=== PATIENT | female | born 1945 | race Hispanic/Latino ===

== ENCOUNTER → 2020-08-24 | Outpatient (CLI) | payer OTHER ==
[~2020-08-24] MED LIST: DOXE6TAB3 PO; INSU100I13 SQ; LOSA50TA64 PO; METOPROLOL PO; SIMV-43 PO; VITAMIN D PO
== END | disposition home or self-care (01) ==
LOC: RAH 07:31
PROVIDERS: ATTEND Internal Medicine
DX: N28.1 Cyst of kidney, acquired (principal); I12.9 Hypertensive chronic kidney disease with stage 1 through stage 4 chronic kidney disease, or unspecified chronic kidney disease
CPT/HCPCS: 93975

== ENCOUNTER → 2021-01-18 | Outpatient (CLI) | payer OTHER | END | disposition home or self-care (01) | LOC: SHCH 15:46 | PROVIDERS: ATTEND Internal Medicine Cardiovascular Disease | DX: R94.31 Abnormal electrocardiogram [ECG] [EKG] (principal) | CPT/HCPCS: 93306; 93356 ==

== ENCOUNTER → 2021-01-20 | Outpatient (CLI) | payer OTHER, MEDICARE ==
[~2021-01-20] MED LIST changes: +REGADENOSON 0.4 MG/5 ML PF SYG IVP SCH
== END | disposition home or self-care (01) ==
LOC: SHCH 08:23
PROVIDERS: ATTEND Internal Medicine Cardiovascular Disease
DX: R94.31 Abnormal electrocardiogram [ECG] [EKG] (principal); R42 Dizziness and giddiness; R06.00 Dyspnea, unspecified; R68.2 Dry mouth, unspecified; R53.83 Other fatigue
CPT/HCPCS: 78452; 93017; 96374; A9500 ×2

== ENCOUNTER → 2021-03-18 | Outpatient (CLI) | payer OTHER ==
[~2021-03-18] MED LIST changes: -REGADENOSON 0.4 MG/5 ML PF SYG IVP SCH
== END | disposition home or self-care (01) ==
LOC: RAH 13:10
PROVIDERS: ATTEND Otolaryngology Plastic Surgery within the Head & Neck
DX: J32.8 Other chronic sinusitis (principal); J34.2 Deviated nasal septum
CPT/HCPCS: 70486

== ENCOUNTER 2021-05-04 06:00 | Day surgery (SDC) | payer OTHER, MEDICARE ==
[2021-04-28 10:00] LABS: BASOPHILS % (AUTO) 0.8 % (0.0-5.0); EOSINOPHILS % (AUTO) 0.9 % (0.0-8.0); HEMATOCRIT 41.6 % (36-48); MEAN CORPUSCULAR HGB CONC 34.4 g/dL (32.0-36.0); MEAN CORPUSCULAR VOLUME 84.4 fL (79-99); MONOCYTES % (AUTO) 7.9 % (3.0-13.0); NEUTROPHILS % (AUTO) 67.3 % (40.0-77.0); PLATELET COUNT (AUTO) 224 K/uL (130-400); RED BLOOD CELL COUNT(AUTO) 4.93 MIL/uL (4.00-5.50); RED CELL DISTRIBUTION WIDTH 12.5 % (11.0-15.5); WHITE BLOOD COUNT (AUTO) 7.5 K/uL (4.8-10.8)
[2021-04-28 10:07] LABS: CREATININE 0.7 mg/dL (0.5-1.5); POTASSIUM 3.7 mmol/L (3.5-5.1)
[2021-04-28 10:10] LABS: PROTHROMBIN TIME 10.9 SEC (9.6-11.6)
[2021-04-28 10:12] LABS: PARTIAL THROMBOPLASTIN TIME 28.1 SEC (26.3-35.5)
[2021-04-28 10:14] LABS: APPEARANCE,URINE Clear (CLEAR); BILIRUBIN,URINE Negative (NEGATIVE); COLOR,URINE Yellow (YELLOW); GLUCOSE, URINE (UA) Negative (NEGATIVE); KETONES,URINE Negative (NEGATIVE); LEUKOCYTE ESTERASE ,URINE Moderate (NEGATIVE); NITRATE,URINE Negative (NEGATIVE); OCCULT BLOOD,URINE Negative (NEGATIVE); PROTEIN,URINE Negative (NEGATIVE); UROBILINOGEN,URINE 0.2 mg/dL (0.2-1.0)
[2021-04-28 10:31] LABS: BACTERIA,URINE Few /HPF (None Seen); RBC,URINE 0-1 /HPF (0-1)
[2021-05-03 09:54] VITALS: BP 191/72
[~2021-05-04] VITALS: Ht 157.5 cm; Wt 92.5 kg
[2021-05-04] VITALS (20 sets, daily range): BP systolic 123–174; BP diastolic 47–70
[~2021-05-04 06:00] MED LIST changes: +0.9% NACL 500ML IV.SOLN 500 ML IV SCH; +AMLO-258 PO; +CARV6.25 PO; +DENO60DI SQ; -DOXE6TAB3 PO; +DiphenhydrAMINE HCL 50 MG/ML VIAL IVP SCH; +FLUT16H NASAL; +HYDR100T27 PO; +HYDR25TA PO; +LATA2.5D14 OP; -LOSA50TA64 PO; -METOPROLOL PO; -SIMV-43 PO; +SOLU-MEDROL 125MG VIAL IVP SCH
[2021-05-04] MEDS ORDERED: 0.9%NACL 1000ML 1,000 ML IV ONE (06:28)
[2021-05-04] MEDS ORDERED: IOHEXOL 350 MG/ML 100ML INFUS..BTL IV ONE (07:12)
[2021-05-04] MEDS ORDERED: IOHEXOL-350 50ML VIAL IV ONE (07:12)
[2021-05-04] MEDS ORDERED: HEPARIN 10,000 UNIT/10ML (1,000 UNIT/ML) VIAL ONE (07:12)
[2021-05-04] MEDS ORDERED: LIDOCAINE HCL 400MG/20ML VIAL ONE (07:13)
[2021-05-04] MEDS ORDERED: DiphenhydrAMINE HCL 50 MG/ML VIAL ONE (07:17)
[2021-05-04] MEDS ORDERED: SOLU-MEDROL 125MG VIAL ONE (07:18)
[2021-05-04] MEDS ORDERED: LABETALOL 20MG VIAL IV ONE (07:56)
[2021-05-04] MEDS ORDERED: 0.9%NACL 10ML VIAL IVP SCH (08:30)
[2021-05-04] MEDS ORDERED: DEXTROSE 50%-WATER 50 ML DISP.SYRIN IV PRN (08:30)
[2021-05-04] MEDS ORDERED: ATROPINE 1MG SYG IVP ONE (08:57)
[2021-05-04] MEDS ORDERED: PHENAZOPYRIDINE HCL 200 MG TABLET ONE (11:08)
[2021-05-04] MEDS ORDERED: INSULIN HUMULIN R 100 UNIT/ML 3ML SQ SCH (11:30)
== END 2021-05-04 19:00 | disposition home or self-care (01) ==
LOC: DAH 06:00
PROVIDERS: ATTEND Internal Medicine Cardiovascular Disease
DX: I25.118 Atherosclerotic heart disease of native coronary artery with other forms of angina pectoris (principal); I11.0 Hypertensive heart disease with heart failure; I50.22 Chronic systolic (congestive) heart failure; E66.01 Morbid (severe) obesity due to excess calories; E78.5 Hyperlipidemia, unspecified; E11.319 Type 2 diabetes mellitus with unspecified diabetic retinopathy without macular edema; Z90.710 Acquired absence of both cervix and uterus; Z90.49 Acquired absence of other specified parts of digestive tract; Z82.49 Family history of ischemic heart disease and other diseases of the circulatory system; Z88.3 Allergy status to other anti-infective agents; Z68.37 Body mass index [BMI] 37.0-37.9, adult; Z79.4 Long term (current) use of insulin; Z79.01 Long term (current) use of anticoagulants; Z79.899 Other long term (current) drug therapy
CPT/HCPCS: 36415; 71045; 80048; 81001; 82948 ×3; 85025; 85610; 85730; 87088; 93005; 93458; A4215; A4216; A4221; A4222; A4223 ×3; A4606; A4663; A6260; A6402; C1894; J1200; J1644; J1815 ×2; J2930; J3490 ×2; J7030; Q9965; Q9967 ×2; 96360; 96361; J0461

== ENCOUNTER → 2022-06-21 | Outpatient (CLI) | payer OTHER, MEDICARE ==
[~2022-06-21] MED LIST changes: -0.9% NACL 500ML IV.SOLN 500 ML IV SCH; +ALBUTEROL 0.083% 2.5 MG/3 ML INH IH ONE; +AUD IH; +DOXY100V2 IV; -DiphenhydrAMINE HCL 50 MG/ML VIAL IVP SCH; +PRED5TAB PO; -SOLU-MEDROL 125MG VIAL IVP SCH
== END | disposition home or self-care (01) ==
LOC: RESP 12:27
PROVIDERS: ATTEND Internal Medicine Cardiovascular Disease
DX: R06.02 Shortness of breath (principal)
CPT/HCPCS: 94060; 94727; 94729

== ENCOUNTER 2022-09-29 05:14 | Emergency (ER) | payer OTHER, MEDICARE ==
[~2022-09-29] VITALS: Ht 149.9 cm; Wt 93.0 kg
[~2022-09-29 05:14] MED LIST changes: -ALBUTEROL 0.083% 2.5 MG/3 ML INH IH ONE
[2022-09-29 05:55] LABS: BASOPHILS % (AUTO) 0.5 % (0.0-5.0); EOSINOPHILS % (AUTO) 1.1 % (0.0-8.0); HEMATOCRIT 33.2 % (36-48); LYMPHOCYTES % (AUTO) 11.2 % (21.0-51.0); MEAN CORPUSCULAR HEMOGLOBIN 21.9 pg (27.0-33.0); MEAN CORPUSCULAR HGB CONC 30.1 g/dL (32.0-36.0); MEAN CORPUSCULAR VOLUME 72.8 fL (79-99); MONOCYTES % (AUTO) 7.2 % (3.0-13.0); NEUTROPHILS % (AUTO) 79.7 % (40.0-77.0); PLATELET COUNT (AUTO) 212 K/uL (130-400); RED BLOOD CELL COUNT(AUTO) 4.56 MIL/uL (4.00-5.50); WHITE BLOOD COUNT (AUTO) 9.5 K/uL (4.8-10.8)
[2022-09-29 06:07] LABS: ALBUMIN 3.4 g/dL (3.5-5.0); CREATININE 0.7 mg/dL (0.5-1.5); MAGNESIUM 1.7 mg/dL (1.80-2.40); POTASSIUM 3.6 mmol/L (3.5-5.1)
[2022-09-29 06:29] LABS: B-TYPE NATRIURETIC PEPTIDE 252 pg/mL (0-100)
[2022-09-29 06:32] LABS: APPEARANCE,URINE CLEAR (CLEAR); BILIRUBIN,URINE NEGATIVE (NEGATIVE); COLOR,URINE COLORLESS (YELLOW); GLUCOSE, URINE (UA) NEGATIVE (NEGATIVE); KETONES,URINE NEGATIVE (NEGATIVE); LEUKOCYTE ESTERASE ,URINE NEGATIVE Leu/uL (NEGATIVE); NITRATE,URINE NEGATIVE (NEGATIVE); OCCULT BLOOD,URINE NEGATIVE (NEGATIVE); PH,URINE 6.5 (5.0-8.0); PROTEIN,URINE NEGATIVE (NEGATIVE); UROBILINOGEN,URINE 0.2 mg/dL (0.2-1.0)
[2022-09-29 07:24] LABS: ABG BASE EXCESS 2.1 mmol/L (-2.0-3.0); ABG HCO3 24.7 mmol/L (21.0-28.0); ABG OXYGEN SATURATION 92.7 % (95.0-99.0); ABG PCO2 33 mmHg (32-45)
[2022-09-29] MEDS ORDERED: DiphenhydrAMINE HCL 50 MG/ML VIAL IV ONE (09:00)
[2022-09-29] MEDS ORDERED: SOLU-MEDROL 125MG VIAL IVP ONE (09:00)
[2022-09-29] MEDS ORDERED: IOHEXOL 350 MG/ML 100ML INFUS..BTL IV ONE (09:30)
[2022-09-29] MEDS ORDERED: ALBUHFA IH (14:22)
[2022-09-29] MEDS ORDERED: PRED50TA2 PO (14:22)
[2022-09-29 16:16] VITALS: BP 141/41
== END 2022-09-29 16:17 | disposition home or self-care (01) ==
LOC: EDH 05:14
DX: J98.01 Acute bronchospasm (principal); I48.0 Paroxysmal atrial fibrillation; R06.00 Dyspnea, unspecified; E11.9 Type 2 diabetes mellitus without complications; I11.0 Hypertensive heart disease with heart failure; I50.9 Heart failure, unspecified; Z20.822 Contact with and (suspected) exposure to COVID-19; Z91.011 Allergy to milk products; Z91.018 Allergy to other foods; Z91.040 Latex allergy status; Z79.899 Other long term (current) drug therapy
CPT/HCPCS: 99285; 96374; 71270; 71045; 87635; 96375; 83735; 84484 ×2; 80053; 82803; 83880; 85025; 85378; 87804 ×2; 81003; 36415; 93005 ×2; 36600; C9803; J1200; J2930; Q9967

== ENCOUNTER → 2023-01-01 | Outpatient (CLI) | payer OTHER, MEDICARE ==
[~2023-01-01] MED LIST changes: +ALBUHFA IH; +PRED50TA2 PO
[2023-01-01 12:04] LABS: BASOPHILS % (AUTO) 0.7 % (0.0-5.0); EOSINOPHILS % (AUTO) 1.1 % (0.0-8.0); HEMATOCRIT 31.5 % (36-48); LYMPHOCYTES % (AUTO) 14.2 % (21.0-51.0); MEAN CORPUSCULAR HEMOGLOBIN 19.7 pg (27.0-33.0); MEAN CORPUSCULAR HGB CONC 28.6 g/dL (32.0-36.0); MEAN CORPUSCULAR VOLUME 68.8 fL (79-99); MONOCYTES % (AUTO) 8.4 % (3.0-13.0); NEUTROPHILS % (AUTO) 75.2 % (40.0-77.0); PLATELET COUNT (AUTO) 287 K/uL (130-400); RED BLOOD CELL COUNT(AUTO) 4.58 MIL/uL (4.00-5.50); RED CELL DISTRIBUTION WIDTH 19.1 % (11.0-15.5); WHITE BLOOD COUNT (AUTO) 10.1 K/uL (4.8-10.8)
[2023-01-01 12:31] LABS: ALBUMIN 3.7 g/dL (3.5-5.0); CREATININE 0.9 mg/dL (0.5-1.5); MAGNESIUM 1.8 mg/dL (1.80-2.40); POTASSIUM 3.5 mmol/L (3.5-5.1); THYROID STIMULATING HORMONE 2.25 uIU/mL (0.36-3.74); TOTAL PROTEIN, SERUM 7.2 g/dL (6.0-8.3)
[2023-01-01 13:59] LABS: T4 (THYROXINE) 10.3 ug/dL (4.7-13.3)
== END | disposition home or self-care (01) ==
LOC: LAB 10:28
PROVIDERS: ATTEND Physician Assistant
DX: R00.0 Tachycardia, unspecified (principal)
CPT/HCPCS: 36415; 80053; 83735; 84436; 84443; 85025

== ENCOUNTER → 2023-02-19 | Outpatient (CLI) | payer OTHER, MEDICARE ==
[~2023-02-19] MED LIST changes: -ALBUHFA IH; -AMLO-258 PO; -AUD IH; -CARV6.25 PO; -DENO60DI SQ; -DOXY100V2 IV; +EMPA10TA PO; +ERGO500093 PO; +ESCI20TA38 PO; +FURO20TA6 PO; -HYDR25TA PO; +LEVO-70 PO; +LISI2.5T13 PO; +METF-444 PO; +METO50 PO; +POTA-200 PO; -PRED50TA2 PO; -PRED5TAB PO; +ROSU20TA73 PO; -VITAMIN D PO
[2023-02-19 12:14] LABS: CREATININE 0.9 mg/dL (0.5-1.5); MAGNESIUM 1.4 mg/dL (1.80-2.40); POTASSIUM 3.5 mmol/L (3.5-5.1)
== END | disposition home or self-care (01) ==
LOC: LAB 08:04
PROVIDERS: ATTEND Physician Assistant
DX: I10 Essential (primary) hypertension (principal); E78.5 Hyperlipidemia, unspecified
CPT/HCPCS: 36415; 80048; 83735

== ENCOUNTER → 2023-06-12 | Outpatient (CLI) | payer OTHER, MEDICARE ==
[2023-06-12 12:34] LABS: CREATININE 1.2 mg/dL (0.5-1.5); MAGNESIUM 1.8 mg/dL (1.80-2.40); POTASSIUM 4.1 mmol/L (3.5-5.1)
== END | disposition home or self-care (01) ==
LOC: LAB 09:31
PROVIDERS: ATTEND Physician Assistant
DX: I10 Essential (primary) hypertension (principal); E78.5 Hyperlipidemia, unspecified
CPT/HCPCS: 36415; 80048; 83735